=== PATIENT | female | born 1990 | race American Indian/Alaskan Native ===

== ENCOUNTER 2022-05-23 17:25 | Inpatient (IN) | payer BC ==
[2022-05-23] MEDS ORDERED: ELECTROLYTE-148 SOLN 500 ML IV ONE ×2 (20:00→21:00)
[2022-05-23] MEDS ORDERED: CITRIC ACID/SODIUM CITRATE 30 ML UNIT-DOSE CUP PO ONE (20:00)
[2022-05-23] MEDS ORDERED: morphine SULFATE/PF 1 MG/2 ML (2cc Syringe - QUVA) ONE (20:19)
[2022-05-23] MEDS ORDERED: PHENYLEPHRINE HCL 10 MG/1 ML SINGLE DOSE VIAL ONE (20:19)
[2022-05-23] MEDS ORDERED: SODIUM CHLORIDE 0.9% P/F 10 ML VIAL IJ ONE (20:19)
[2022-05-23] MEDS ORDERED: FENTANYL CITRATE/PF 50 MCG/ML VIAL ONE (20:19)
[2022-05-23] MEDS ORDERED: ePHEDrine SULFATE 50 MG/1 ML AMPULE ONE ×2 (20:20→20:29)
[2022-05-23] MEDS ORDERED: OXYTOCIN 20 UNITS in 0.9% NS 20 UNIT/1,000 ML INFUS.BAG IV ONE ×2 (20:25→22:38)
[2022-05-23] MEDS ORDERED: ceFAZolin SODIUM 1 GM VIAL ONE (20:41)
[2022-05-23 20:47] LABS: BASO % 0.3 % (0-2.0); EOS % 0.2 % (0-4.5); HEMATOCRIT 39.1 % (32.4-45.2); HEMOGLOBIN 13.1 GM/dL (10.7-15.3); LYMPH % 11.5 % (8-40); MCH 30.1 pg (25.7-33.7); MCHC 33.6 g/dl (32.0-36.0); MEAN CELL VOLUME 89.4 fl (80-96); MEAN PLT VOLUME 7.5 fl (7.5-11.1); MONO % 7.1 % (3.8-10.2); NEUT % 80.9 % (42.8-82.8); PLATELET COUNT 233 10^3/uL (134-434); RBC 4.37 M/mm3 (3.60-5.2); RDW 13.5 % (11.6-15.6); WHITE BLOOD COUNT 9.6 K/mm3 (4.0-10.0)
[2022-05-23 20:54] LABS: INR 0.91 (0.83-1.09); PROTHROMBIN TIME (PATIENT) 10.4 SEC (9.7-13.0)
[2022-05-23] MEDS ORDERED: OXYTOCIN 10 UNITS/ML VIAL ONE ×2 (20:54→21:07)
[2022-05-23 20:56] LABS: ACTIVATED PTT 29.9 SECONDS (25.2-36.5); CALCIUM 9.2 mg/dL (8.5-10.1)
[2022-05-23 20:57] LABS: BLOOD UREA NITROGEN 3.4 mg/dL (7-18)
[2022-05-23 21:00] LABS: CREATININE 0.4 mg/dL (0.55-1.3)
[2022-05-23] MEDS ORDERED: KETOROLAC TROMETHAMINE 30 MG/1 ML VIAL ONE (21:07)
[2022-05-23] MEDS ORDERED: ONDANSETRON 4 MG/2 ML VIAL ONE (21:07)
[2022-05-23] MEDS ORDERED: morphine SULFATE/PF 1 MG/2 ML (2cc Syringe - QUVA) IT ONE (21:35)
[2022-05-23] MEDS ORDERED: ONDANSETRON 4 MG/2 ML VIAL IVPUSH PRN (21:35)
[2022-05-23] MEDS ORDERED: ACETAMINOPHEN 1000 MG/100 ML BAG IVPB SCH (21:45)
[2022-05-23] MEDS ORDERED: ELECTROLYTE-148 SOLN 1,000 ML IV SCH (21:45)
[2022-05-23 21:50] LABS: CORD HCO3 22.7 mmHg (20-29); CORD PCO2 55.9 mmHg (30-78); CORD pH 7.227 (7.14-7.44)
[2022-05-23] MEDS ORDERED: METHYLERGONOVINE MALEATE 0.2 MG/1 ML AMP IM PRN (21:52)
[2022-05-23] MEDS ORDERED: WITCH HAZEL 50% (TUCKS) 40 PAD/JAR PAD TP PRN (21:52)
[2022-05-23] MEDS ORDERED: BENZOCAINE 28 GM HEMORRHOIDAL OINTMENT TP PRN (21:52)
[2022-05-23] MEDS ORDERED: BENZOCAINE 20% 57 GM BOTTLE TP PRN (21:52)
[2022-05-23 21:53] LABS: CORD BASE EXCESS -2.9 mmol/L (0-2); CORD HCO3 22.9 mmHg (20-29); CORD PCO2 43.9 mmHg (30-78); CORD pH 7.336 (7.14-7.44)
[2022-05-23 22:59] VITALS: BMI 23.3
[2022-05-24] MEDS: CEFAZOLIN 1 GM in DEXTROSE 5%-WATER - 50 ML IVPB SCH ×3 (01:30→18:40)
[2022-05-24] MEDS: SIMETHICONE 80 MG TAB.CHEW (FP) PO PRN ×3 (01:30→20:24)
[2022-05-24] MEDS: IBUPROFEN 800 MG/8 ML IJ IVPB PRN ×3 (02:09→17:34)
[2022-05-24] MEDS: OXYTOCIN 20 UNITS in 0.9% NS 20 UNIT/1,000 ML INFUS.BAG IV SCH ×2 (06:45→23:39)
[2022-05-24 07:12] LABS: BASO % 0.2 % (0-2.0); EOS % 0.3 % (0-4.5); HEMATOCRIT 29.1 % (32.4-45.2); HEMOGLOBIN 9.7 GM/dL (10.7-15.3); LYMPH % 13.3 % (8-40); MCH 30.1 pg (25.7-33.7); MCHC 33.3 g/dl (32.0-36.0); MEAN CELL VOLUME 90.3 fl (80-96); MEAN PLT VOLUME 7.4 fl (7.5-11.1); MONO % 5.6 % (3.8-10.2); NEUT % 80.6 % (42.8-82.8); PLATELET COUNT 180 10^3/uL (134-434); RBC 3.22 M/mm3 (3.60-5.2); WHITE BLOOD COUNT 8.8 K/mm3 (4.0-10.0)
[2022-05-24] MEDS: PRENATAL VITAMINS W/ FOLIC ACID TABLET (FP) PO SCH (09:38)
[2022-05-24] MEDS ORDERED: oxyCODONE HCL 5 MG TABLET PO PRN (09:52)
[2022-05-24] MEDS: IBUPROFEN 600 MG TABLET (FP) PO PRN (15:50)
[2022-05-24] MEDS: SENNOSIDES/DOCUSATE COMBO (SENNA PLUS) TABLET (UD) PO PRN (20:24)
[2022-05-24] MEDS: ACETAMINOPHEN 325 MG TABLET (FP) PO PRN (20:24)
[2022-05-24] MEDS ORDERED: BISACODYL 10 MG SUPP.RECT RC PRN (21:52)
[2022-05-25] MEDS: IBUPROFEN 600 MG TABLET (FP) PO PRN ×3 (05:37→20:40)
[2022-05-25] MEDS: SIMETHICONE 80 MG TAB.CHEW (FP) PO PRN ×2 (05:37→14:06)
[2022-05-25] MEDS: ACETAMINOPHEN 325 MG TABLET (FP) PO PRN (09:06)
[2022-05-25] MEDS: PRENATAL VITAMINS W/ FOLIC ACID TABLET (FP) PO SCH (09:07)
[2022-05-25] MEDS ORDERED: guaiFENesin/D-METHORPHAN HB 10 ML UNIT-DOSE CUPS PO ONE (10:15)
[2022-05-25] MEDS: SENNOSIDES/DOCUSATE COMBO (SENNA PLUS) TABLET (UD) PO PRN (11:43)
[2022-05-25] MEDS: oxyCODONE HCL 5 MG TABLET PO PRN (18:02)
[2022-05-25] MEDS: guaiFENesin/D-METHORPHAN HB 10 ML UNIT-DOSE CUPS PO PRN (20:40)
[2022-05-26 07:57] LABS: BASO % 0.4 % (0-2.0); EOS % 0.9 % (0-4.5); HEMATOCRIT 27.5 % (32.4-45.2); HEMOGLOBIN 9.2 GM/dL (10.7-15.3); LYMPH % 16.4 % (8-40); MCH 30.1 pg (25.7-33.7); MCHC 33.5 g/dl (32.0-36.0); MEAN CELL VOLUME 89.8 fl (80-96); MEAN PLT VOLUME 7.6 fl (7.5-11.1); MONO % 6.2 % (3.8-10.2); NEUT % 76.1 % (42.8-82.8); PLATELET COUNT 217 10^3/uL (134-434); RBC 3.06 M/mm3 (3.60-5.2); RDW 14.1 % (11.6-15.6); WHITE BLOOD COUNT 12.2 K/mm3 (4.0-10.0)
[2022-05-26] MEDS: SIMETHICONE 80 MG TAB.CHEW (FP) PO PRN (08:13)
[2022-05-26] MEDS: oxyCODONE HCL 5 MG TABLET PO PRN (08:13)
[2022-05-26] MEDS: guaiFENesin/D-METHORPHAN HB 10 ML UNIT-DOSE CUPS PO PRN (08:13)
[2022-05-26 09:55] VITALS: BP 108/71; PULSE 100; RESP 16; TEMP 98
[2022-05-26] MEDS: PRENATAL VITAMINS W/ FOLIC ACID TABLET (FP) PO SCH (10:08)
[2022-05-26] MEDS: IBUPROFEN 600 MG TABLET (FP) PO PRN (12:09)
== END 2022-05-26 13:46 | disposition home or self-care (01) | DRG 788 ==
LOC: JDEL 17:25 → JLDR 20:00 → J3W 23:21
PROVIDERS: ADMIT Obstetrics & Gynecology; ATTEND Obstetrics & Gynecology
PROC: 10D00Z1 Extraction of Products of Conception, Low, Open Approach (ICD-10-PCS; principal; 2022-05-23)
DX: O76 Abnormality in fetal heart rate and rhythm complicating labor and delivery (principal); O69.89X0 Labor and delivery complicated by other cord complications, not applicable or unspecified; Z3A.39 39 weeks gestation of pregnancy; Z37.0 Single live birth; O90.81 Anemia of the puerperium
CPT/HCPCS: 36415; 36600; 59025; 76819-TC; 80048; 82803; 85025; 85610; 85730; 86780; 86850; 86900; 86901; 88307-TC; C9803-CS; U0003; U0005